=== PATIENT | female | born 1940 | race Caucasian/White ===

== ENCOUNTER 2018-12-08 19:35 | Inpatient (IN) ==
[2018-12-08 20:11] LABS: BASOPHILS # (AUTO) 0.03 10*3/UL; BASOPHILS % (AUTO) 0.3 % (0-1); EOSINOPHILS % (AUTO) 1.9 % (0-8); Hematocrit [HCT] 43.4 % (37.0-47.0); Hemoglobin [HGB] 13.6 g/dL (12.0-16.0); LYMPHOCYTES # (AUTO) 2.62 10*3/uL; MEAN CORPUSCULAR HGB CONC 31.3 g/dL (33-37); MEAN CORPUSCULAR VOLUME 99.1 FL (81-99); MEAN PLATELET VOLUME 10.5 FL (7.4-12.2); MONOCYTES # (AUTO) 0.89 10*3/UL (0.3-0.8); MONOCYTES % (AUTO) 8.3 % (5-15); NEUTROPHILS # (AUTO) 6.97 10*3/UL; NEUTROPHILS % (AUTO) 64.8 % (50-80); PLATELET MORPHOLOGY COMMENT NORMAL MORPHOLOGY (NORM); RBC MORPHOLOGY COMMENT NORMAL MORPHOLOGY (NORM); RED BLOOD COUNT 4.38 10^6/uL (4.20-5.40); WBC MORPHOLOGY COMMENT NORMAL MORPHOLOGY (NORM)
--- NOTE | 2018-12-08 20:15 | EKG ---
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
[2018-12-08 20:17] LABS: BUN/CREATININE RATIO 21.66 (6-20); SERUM ALBUMIN 4.1 g/dL (3.5-4.8)
[2018-12-08] MEDS: Sodium Chloride 0.9% 1,000 ML PRIMARY IV ONE ×2 (20:42→23:08)
[2018-12-08] MEDS ORDERED: LIDOCAINE HCL 2 % 10 ML JELLY URO-JECT TOPICAL PRN (20:49)
--- NOTE | 2018-12-08 20:53 | DI ---
INDICATION: Trauma COMPARISON: None FINDINGS: AP view of the pelvis and AP and lateral views of the left hip are obtained. There is an acute impacted, nondisplaced subcapital fracture of the right femoral neck. The sacral iliac joints, hip joints, and pubic symphysis are congruent. The bones are osteopenic. There are postoperative changes in the lower lumbar spine. IMPRESSION: 1. Acute impacted nondisplaced subcapital fracture of the right femoral neck.
[2018-12-08] MEDS ORDERED: ACETAMINOPHEN 325 MG TABLET PO PRN (22:14)
[2018-12-08] MEDS ORDERED: ONDANSETRON 4 MG/2 ML VIAL IVP PRN (22:14)
[2018-12-08] MEDS ORDERED: HYDROcodone-APAP 5 MG -325 MG TABLET PO PRN (22:14)
[2018-12-08] MEDS ORDERED: GLYCERIN RIGHT EYE PRN (22:14)
[2018-12-08] MEDS ORDERED: DOCUSATE 100 MG CAPSULE PO PRN (22:14)
[2018-12-08] MEDS ORDERED: MAGNESIUM 400 MG/5 ML - 30 ML (MILK OF MAGNESIA) PO PRN (22:14)
[2018-12-08] MEDS ORDERED: LIDOCAINE W/ SODIUM BICARB 0.5 ML SYR SUBD PRN (22:14)
[2018-12-08] MEDS ORDERED: Insulin NPH/Reg 70/30 Kwikpen 100 UNIT/ML INSULN.PEN SUBCUT SCH (22:14)
[2018-12-08] MEDS ORDERED: CARBOXYMETHYLCELLULOS RIGHT EYE PRN (22:14)
[2018-12-08] MEDS ORDERED: MORPHINE SULFATE 2 MG/1 ML IVP PRN (22:14)
[2018-12-08] MEDS ORDERED: CALCIUM CARBONATE 500 MG (TUMS) CHEWABLE TABLET PO PRN (22:14)
[2018-12-08] MEDS ORDERED: Sertraline Tab 100 MG TAB PO SCH (22:30)
[2018-12-08] MEDS ORDERED: HYDROcodone-APAP 5 MG -325 MG TABLET PO SCH (22:30)
[2018-12-08] MEDS ORDERED: HALOPERIDOL 1 MG TABLET PO SCH (22:30)
[2018-12-08] MEDS: HEPARIN 5000 UNIT/1 ML SUBCUT SCH (23:05)
[2018-12-08] MEDS: Sodium Chloride 0.9% 1,000 ML PRIMARY IV SCH (23:44)
[2018-12-09 04:48] LABS: BASOPHILS # (AUTO) 0.01 10*3/UL; BASOPHILS % (AUTO) 0.1 % (0-1); EOSINOPHILS # (AUTO) 0.13 10*3/UL; EOSINOPHILS % (AUTO) 1.2 % (0-8); Hematocrit [HCT] 37.2 % (37.0-47.0); Hemoglobin [HGB] 11.6 g/dL (12.0-16.0); LYMPHOCYTES # (AUTO) 1.47 10*3/uL; MEAN CORPUSCULAR HGB CONC 31.2 g/dL (33-37); MEAN CORPUSCULAR VOLUME 100.3 FL (81-99); MEAN PLATELET VOLUME 10.2 FL (7.4-12.2); MONOCYTES # (AUTO) 0.91 10*3/UL (0.3-0.8); MONOCYTES % (AUTO) 8.6 % (5-15); NEUTROPHILS # (AUTO) 8.03 10*3/UL; RED BLOOD COUNT 3.71 10^6/uL (4.20-5.40)
[2018-12-09 04:51] LABS: PLATELET MORPHOLOGY COMMENT NORMAL MORPHOLOGY (NORM); RBC MORPHOLOGY COMMENT NORMAL MORPHOLOGY (NORM); WBC MORPHOLOGY COMMENT NORMAL MORPHOLOGY (NORM)
[2018-12-09 05:03] LABS: BUN/CREATININE RATIO 18.18 (6-20); SERUM ALBUMIN 3.1 g/dL (3.5-4.8)
--- NOTE | 2018-12-09 05:33 | PDOC ---
Hip Injury/Pain HPI - General Chief Complaint: Lower Extremity Problem/Injury Stated Complaint: RIGHT PELVIC PAIN S/P FALL Date Seen by Provider: 12/08/18 Time Seen by Provider: 20:00 Source: POSITIVE: Patient, EMS, long term records Exam Limitations: POSITIVE: No limitations Nurse's Notes Reviewed & Considered: Yes EMS Report Reviewed & Considered: Verbal - History of Present Illness Initial Comments: The patient is a 78-year-old female who is transferred reported by ambulance from the [facility]. Patient was in [facility] area at the [facility] and she fell, injuring her right hip. Patient has a history of dementia. She also has a history of diabetes mellitus. She has normal facial right eye. Patient is a poor historian due to her dementia. Patient had no apparent head neck back chest abdominal or upper extremity trauma or discomfort. Have you received a tetanus shot in the past 10 years?: Unknown Location: Right Hip Timing: REPORTS: Abrupt Duration: 1/2 hour Severity: Moderate Location at Time of Onset: REPORTS: Other (long term) Context: REPORTS: Fall Concurrent Injuries: DENIES: Neck, Head, Back, Chest, Abdomen, Extremities, Face, Other Quality: REPORTS: "Pain" (Right hip) Modifying Factors: REPORTS: Movement Symptoms Prior to Fall: DENIES: Fever, Chills, Diaphoresis, Diaphoresis, Chest Pain, Weakness, Rapid Heart Rate, Nausea, Vomiting, Diarrhea, Dizziness, Light- Headedness, Headache, Seizure, Other Subsequent Symptoms: DENIES: Sensory Loss, Motor Loss, Numbness, Weakness, Bowel / Bladder Problems, Other Similar Symptoms Previously: No Recent Care Received: REPORTS: Denies Any Prior Injuries Related to Current Complaint?: No - Patient Home Medications Home Medications: Home Medications acetaminophen 500 mg tablet 500 - 1,000 mg PO Q6H PRN tab 12/03/18 acetaminophen 500 mg tablet 500 mg PO QDAY tab 12/03/18 aspirin 81 mg tablet,delayed release 81 mg PO QDAY 12/03/18 atorvastatin 10 mg tablet 10 mg PO .QOD tab 12/03/18 bisacodyl 10 mg rectal suppository 10 mg AK QDAY PRN 12/03/18 carboxymethylcellulose 0.5 %-glycerin 0.9 % eye drops 1 drp RIGHT EYE 10XD PRN ml 12/03/18 divalproex 125 mg capsule,delayed release sprinkle 125 mg PO TID cap 12/03/18 haloperidol 1 mg tablet 1 mg PO QAM tab 12/03/18 haloperidol 1 mg tablet 2 mg PO QHS tab 12/03/18 hydrocodone 5 mg-acetaminophen 325 mg tablet 1 tab PO BID tab 12/03/18 hydrocodone 5 mg-acetaminophen 325 mg tablet 1 tab PO Q8H PRN tab 12/03/18 hydrocodone 5 mg-acetaminophen 325 mg tablet 2 tab PO QHS tab 12/03/18 ibuprofen 200 mg tablet 200 mg PO BID tab 12/03/18 ibuprofen 200 mg tablet 400 mg PO Q4H PRN tab 12/03/18 insulin NPH-regular 70-30 U-100 insulin 100 unit/mL subcutaneous pen 10 unit SUBCUT QHS ml 12/03/18 insulin NPH-regular 70-30 U-100 insulin 100 unit/mL subcutaneous pen 26 unit SUBCUT QAM ml 12/03/18 magnesium hydroxide 400 mg/5 mL oral suspension 30 ml PO QDAY PRN ml 12/03/18 melatonin 3 mg tablet 3 mg PO QHS 12/03/18 memantine 10 mg tablet 10 mg PO BID 12/03/18 menthol 4 % topical gel 1 applic TOPICAL QHS ml 12/03/18 menthol 4 % topical gel 1 applic TOPICAL TID ml 12/03/18 ranitidine 150 mg tablet 150 mg PO QDAY 12/03/18 sertraline 100 mg tablet 100 mg PO QHS tab 12/03/18 - Patient Allergies Allergies/Adverse Reactions: Allergies Allergy/AdvReac Type Severity Reaction Status Date / Time meperidine [From Demerol] AdvReac Other : Verified 12/08/18 22:50 See Comment morphine AdvReac Other : Verified 12/08/18 22:49 See Comment Past Medical History - heen HEENT History: Other (please comment) Additional HEENT History: ARTIFICIAL RIGHT EYE Cardiovascular History: Angina, Hyperlipidemia Respiratory History: Denies History Gastrointestinal History: GERD Genitourinary History: Renal Disease Endocrine History: Type 2 Diabetes (insulin) Musculoskeletal History: Arthritis, Back Pain Neurological History: TIA, Dementia, Multiple Sclerosis Blood Disorders: Denies History Psychiatric History: Denies History History of Sexually Transmitted Diseases: No Female Reproductive History: Denies History Obstetrical History: Denies History Cancer History: Denies History In Past Year Been Physically Harmed or Verbally Threatened: No History of MDRO: No History of Other Communicable Diseases: No Tobacco Use: Never Smoker In the Past 12 Months, Have Used or Abuse Any Substance: None Previous Surgical History: Yes Type / Date of Surgery: LEFT TKA, ARTIFICIAL RIGHT EYE, lower back surgery Anesthesia Reactions: (TOMMY FROM PT HISTORY OR [facility] RECORDS) Malignant Hyperthermia: (TOMMY FROM PT HISTORY OR [facility] RECORDS) Family History of Malignant Hyperthermia: (TOMMY FROM PT HISTORY OR [facility] RECORDS) Significant Family History: Other (please comment) Additional Family History: TOMMY FROM PT HISTORY OR [facility] RECORDS Past Medical History Reviewed: Reviewed - No Changes ROS - Limitations ROS Limitations: No Limitations Constitution: REPORTS: Denies Symptoms Cardiovascular: REPORTS: Denies Cardiac Symptoms Respiratory: REPORTS: Denies Resp Symptoms Neurological: REPORTS: Denies Neuro Symptoms Gastrointestinal: REPORTS: Denies GI Symptoms Endocrine: REPORTS: Denies Symptoms Musculoskeletal: REPORTS: Joint Pain (Right hip) Genitourinary: REPORTS: Denies Symptoms Eyes: REPORTS: Denies Symptoms ENT: REPORTS: Denies Symptoms Skin: REPORTS: Denies Skin Symptoms Lympathic: REPORTS: Denies Lympathic Symptoms Immunologic: POSITIVE: Denies Symptoms Psychiatric: POSITIVE: Denies Psych Symptoms Hip Injury / Pain Exam - General Appearance General Appearance: POSITIVE: Alert, Cooperative, Mild Distress. NEGATIVE: No Acute Distress, No Evidence of Trauma (Pain on help patient anterior and lateral aspect right hip) - Lower Extremity Extremities: POSITIVE: No Pedal Edema, No Obvious Injury to Knee, No Deformity to Knee, Normal Tendon Exam, Hip Pain on Leg Movement. NEGATIVE: Non-Tender (P ain on palpation anterior and anterolateral aspect right hip), Normal ROM (Limited by pain), Shortening of Leg, External Rotation of Leg, Hip/Knee Tenderness, Pedal Edema, Ecchymosis, Erythema, Soft Tissue Injury - HEENT HEENT: POSITIVE: Head Inspection Nml, Ears Inspection Nml, Nose Inspection Nml, Oral/Dental Inspect. Nml, Pharynx Inspect. Nml. NEGATIVE: Eyes Inspection Nml (Artificial right eye) - Pupil Size Pupil Size: 4 mm: Left - Neck/Back Neck: POSITIVE: Normal Inspection, Non-Tender Back: POSITIVE: Normal Inspection, No CVA Tenderness, Non Tender, Painless ROM, No Vertebral Tenderness - Respiratory / CVS Cardiovascular: POSITIVE: Regular Rate and Rhythm, Heart Sounds Normal, Equal Pulses, Strong Pulses, No Murmur, No Gallop, No JVD, No Pulse Deficit Respiratory: POSITIVE: Chest Non Tender, No Ecchymosis, Breath Sounds Normal, No Respiratory Distress Peripheral Pulses: Radial (R): 2+, Radial (L): 2+, Dorsalis-pedis (R): 2+, Dorsalis-pedis (L): 2+ - Abdomen Abdomen: Soft: (All Quadrants), Normal Bowel Sounds: (All Quadrants), Denies Tenderness: (All Quadrants), No Splenomegaly: (All Quadrants), No Hepatomegaly: (All Quadrants), No Guarding: (All Quadrants), No Rebound: (All Quadrants), No Palpable Pulse: (All Quadrants), No Palpabale Mass: (All Quadrants), No Distention: (All Quadrants), No Rigidity: (All Quadrants) - Skin Skin: POSITIVE: Color Normal, No Rash, Warm, Dry, Normal Palpation - Neuro/Psych Neuro / Psych: NEGATIVE: Oriented x 3 (Patient has chronic dementia. She is not oriented to time, president or situation chronically.) Images - Complete Complete: 1 - Area of pain Hip Injury / Pain Progress - Results Reviewed by me Xrays/CTs/US Reviewed by me: Yes Discussed with Radiologist: Yes Radiology Findings: Subcapital right femoral neck fracture Lab Results Reviewed by Me: Yes CBC and BMP: 12/09/18 04:10 12/09/18 04:10 Lab Results:: Laboratory Results 12/08/18 12/08/18 12/08/18 19:45 19:45 20:15 WBC 10.74 RBC 4.38 Hgb 13.6 Hct 43.4 MCV 99.1 H MCH 31.1 H MCHC 31.3 L RDW Std Deviation 44.8 RDW Coeff of Darleen 12.6 Plt Count 232 MPV 10.5 Immature Gran % (Auto) 0.3 Neut % (Auto) 64.8 Lymph % (Auto) 24.4 [place] % (Auto) 8.3 Eos % (Auto) 1.9 Baso % (Auto) 0.3 Immature Gran # (Auto) 0.03 Neut # (Auto) 6.97 Lymph # (Auto) 2.62 [place] # (Auto) 0.89 H Eos # (Auto) 0.20 Baso # (Auto) 0.03 WBC Morphology Comment Normal morphology Plt Morphology Comment Normal morphology RBC Morph Comment Normal morphology PT 11.9 INR 1.03 Sodium 143 Potassium 4.0 Chloride 102 Carbon Dioxide 31 Anion Gap 10 BUN 26 H Creatinine 1.2 Estimated GFR BUN/Creatinine Ratio 21.66 H Glucose 130 H Calculated Osmolality 302.0 H Calcium 9.4 Total Bilirubin 0.4 AST 42 H ALT 22 Alkaline Phosphatase 78 Total Protein 7.2 Albumin 4.1 Globulin 3.2 Albumin/Globulin Ratio 1.20 L EKG Interpreted/Reviewed By Me:: Yes (normal) EKG Interpretation:: POSITIVE: Normal Sinus Rhythm, Normal Rate, Normal Intervals, Normal Man, Normal QRS, Normal ST/T - Patient's Progress Pain Medication Addressed: POSITIVE: Not Applicable (Patient comfortable provided she does not move her right hip; Guidry catheter passed) Re-Examine Time: 20:00 Re-Examine Comment: Patient advised that she has a right hip fracture. Case discussed with the orthopedist on-call, Dr. Lugo and hospitalist crushed stone grader, Dr. Lezama. Patient admitted to hospitalist for further evaluation and treatment. Status: POSITIVE: Unchanged, Re-Examined - Consult Consult (If Yes, Name of Consulting MD & Time Called): Yes (Dr. Flores, orthopedist and Dr. Lezama, hospitalist, [id number]) Consulting MD will see pt:: POSITIVE: [facility] Admit Counseled: POSITIVE: Patient, RE: Lab Results, RE: Radiology Results, RE: DX, RE: Need for F/U Patient Care Time - Estimated PCT Patient Care Time (In Minutes): 45 Vital Signs - VS Reviewed Vital Signs Reviewed: Yes Discharge Clinical Impression: Hip fracture Discharge Disposition: Admit to Inpatient Condition: Stable Patient Problem(s) Reviewed: Yes Date Decision to Admit to Inpatient: 12/09/18 Time Decision to Admit to Inpatient: 21:10
[2018-12-09] MEDS: HEPARIN 5000 UNIT/1 ML SUBCUT SCH ×2 (08:23→16:16)
[2018-12-09] MEDS: HYDROcodone-APAP 5 MG -325 MG TABLET PO SCH ×2 (08:24→12:55)
[2018-12-09] MEDS ORDERED: FAMOTIDINE 20 MG TABLET PO SCH (09:00)
[2018-12-09] MEDS ORDERED: HALOPERIDOL 1 MG TABLET PO SCH (09:00)
[2018-12-09] MEDS ORDERED: MEMANTINE 10 MG TABLET PO SCH (09:00)
--- NOTE | 2018-12-09 09:32 | PDOC ---
HPI - History of Present Illness History of Present Illness: This very nice 78-year-old female resident of the [facility] before that she was at [place]. When in [place] she sustained a fall trying to get away from the [facility]. This time she fell on the dining area and x-ray showed also A fracture of her right hip. She also has a history of dementia and diabetes. She is not in pain this morning he has no complaints had a long discussion with the family members and daughters. She is allergic to morphine which we will not give her and give her IV fentanyl for breakthrough pain. Past Medical History Medical History: Diabetes, dementia, hypertension chronic arthritis Tobacco Use: Never Smoker In the Past 12 Months, Have Used or Abuse Any of the Following Substance: None Medication / Allergies Home Medications: Home Medications Medication Instructions Recorded Confirmed acetaminophen 500 mg tablet 500 - 1,000 mg PO Q6H PRN tab 12/03/18 12/08/18 acetaminophen 500 mg tablet 500 mg PO QDAY tab 12/03/18 12/08/18 aspirin 81 mg tablet,delayed 81 mg PO QDAY 12/03/18 12/08/18 release atorvastatin 10 mg tablet 10 mg PO .QOD tab 12/03/18 12/08/18 bisacodyl 10 mg rectal suppository 10 mg AR QDAY PRN 12/03/18 12/08/18 carboxymethylcellulose 0.5 1 drp RIGHT EYE 10XD PRN ml 12/03/18 12/08/18 %-glycerin 0.9 % eye drops divalproex 125 mg capsule,delayed 125 mg PO TID cap 12/03/18 12/08/18 release sprinkle haloperidol 1 mg tablet 1 mg PO QAM tab 12/03/18 12/08/18 haloperidol 1 mg tablet 2 mg PO QHS tab 12/03/18 12/08/18 hydrocodone 5 mg-acetaminophen 325 1 tab PO BID tab 12/03/18 12/08/18 mg tablet hydrocodone 5 mg-acetaminophen 325 1 tab PO Q8H PRN tab 12/03/18 12/08/18 mg tablet hydrocodone 5 mg-acetaminophen 325 2 tab PO QHS tab 12/03/18 12/08/18 mg tablet ibuprofen 200 mg tablet 200 mg PO BID tab 12/03/18 12/08/18 ibuprofen 200 mg tablet 400 mg PO Q4H PRN tab 12/03/18 12/08/18 insulin NPH-regular 70-30 U-100 10 unit SUBCUT QHS ml 12/03/18 12/08/18 insulin 100 unit/mL subcutaneous pen insulin NPH-regular 70-30 U-100 26 unit SUBCUT QAM ml 12/03/18 12/08/18 insulin 100 unit/mL subcutaneous pen magnesium hydroxide 400 mg/5 mL 30 ml PO QDAY PRN ml 12/03/18 12/08/18 oral suspension melatonin 3 mg tablet 3 mg PO QHS 12/03/18 12/08/18 memantine 10 mg tablet 10 mg PO BID 12/03/18 12/08/18 menthol 4 % topical gel 1 applic TOPICAL QHS ml 12/03/18 12/08/18 menthol 4 % topical gel 1 applic TOPICAL TID ml 12/03/18 12/08/18 ranitidine 150 mg tablet 150 mg PO QDAY 12/03/18 12/08/18 sertraline 100 mg tablet 100 mg PO QHS tab 12/03/18 12/08/18 Allergies/Adverse Reactions: Allergies Allergy/AdvReac Type Severity Reaction Status Date / Time meperidine [From Demerol] AdvReac Other : Verified 12/09/18 10:33 See Comment morphine AdvReac Other : Verified 12/09/18 10:33 See Comment Review of Systems - Review of Systems All Systems: Reviewed & No Additional Complaints Except as Stated ROS Unobtainable: Other (Secondary to dementia) - Respiratory Respiratory: DENIES: Negative System Review, Cough, Sputum, Dyspnea At Rest, Dyspnea with Exertion, Pleuritic Pain, Hemoptysis, Wheezing, Other, See HPI - Cardiovascular Cardiovascular: DENIES: Negative System Review, Chest Pain, Edema, Syncope, Palpitations, Orthopnea, Paroxysmal Nocturnal Dyspnea, Other, See HPI Exam - Vitals Vital Signs: Vital Signs Temperature 97.8 F Temperature Source Temporal Artery Scan Pulse Rate [Pulse Oximeter] 67 Pulse Rate 65 Respiratory Rate 20 Blood Pressure [Left Arm] 124/50 Blood Pressure 135/58 Pulse Ox 96 Oxygen Flow Rate 2 Oxygen Delivery Method Nasal Cannula Height 5 ft 2 in Weight 176 lb 3.2 oz - General General Appearance: No Acute Distress - Respiratory Respiratory Exam: POSITIVE: Clear to Auscultation - Bilaterally, Breathing Non Labored, Normal To Percussion, Normal to Percussion and Palpation - Cardiovascular Cardiovascular Exam: POSITIVE: RRR, No Murmur, No Clicks, No Gallops, No Rubs, PMI Non-Displaced - GI/Abdominal GI/Abdominal Exam: POSITIVE: Normal Bowel Sounds, Non Tender, Non Distended, Soft, No Masses, No Hepatomegaly, No Splenomegaly, No Organomegaly Results - Labs CBC and BMP: 12/09/18 04:10 12/09/18 04:10 Assessment and Plan - Patient Problems (1) Hip fracture Current Visit: Yes Status: Acute Comment: Spoke with Dr. Lugo he will evaluate the patient, up with a plan CT over the right hip is pending pain is controlled with IV fentanyl patient is allergic to morphine Code(s): S72.009A - Fracture of unspecified part of neck of unspecified femur, initial encounter for closed fracture (2) Diabetes Current Visit: Yes Status: Acute Comment: We will do have to dose of what she usually takes Code(s): E11.9 - Type 2 diabetes mellitus without complications (3) Dementia Current Visit: Yes Status: Acute Comment: Continue current by mouth pills Code(s): F03.90 - Unspecified dementia without behavioral disturbance
[2018-12-09] MEDS: DIVALPROEX SODIUM 125 MG PO SCH ×2 (10:32→16:16)
[2018-12-09] MEDS: fentaNYL Inj 100 MCG/2 ML VIAL IVP PRN ×3 (10:52→15:28)
[2018-12-09] MEDS: Sodium Chloride 0.9% 1,000 ML PRIMARY IV SCH (10:53)
--- NOTE | 2018-12-09 11:08 | DI ---
CT SCAN OF THE RIGHT HIP, 12/09/2018 10:26 AM : Clinical History: Right hip fracture. Right hip pain. Previous Exam: None at this facility. Technique: Scans are obtained from just superior to the right SI joint to the proximal right femur wi thout IV contrast. Sagittal and coronal reformatted images are also generated. Soft Tissues: Normal. There is a moderate-sized right hip effusion, probably representing a hemarthro sis. Bone Tissue: Intact acetabulum. Impacted subcapital right hip fracture. No lytic or blastic metastati c lesions identified. There is osteoporosis. READIN. Right subcapital impacted hip fracture. Intact acetabulum. 2. Severe osteoporosis.
--- NOTE | 2018-12-09 12:22 | CONSULT ---
Consult Note - Consult Consult Date: 12/09/18 Reason for Consult: PreOp Consulation : Ortho Requesting Physician: Dr Campos Primary Care Provider: NONE NONE - History of Present Illness History of Present Illness: Patient is a 78-year-old female who is been in her usual state of health with some degree of dementia and medical problems that have been relatively stable who sustained a fall while at dinner tonight at [facility]. According to family patient has had multiple random falls recently. Patient poor historian because of dementia. Patient would no previous complaints of hip pain. Patient seen in the emergency room and found to have a hip fracture and a consultation was requested. Past Medical History Medical History: Diabetes, dementia, hypertension chronic arthritis Tobacco Use: Never Smoker In the Past 12 Months, Have Used or Abuse Any of the Following Substance: None Medication / Allergies Home Medications: Home Medications Medication Instructions Recorded Confirmed acetaminophen 500 mg tablet 500 - 1,000 mg PO Q6H PRN tab 12/03/18 12/08/18 acetaminophen 500 mg tablet 500 mg PO QDAY tab 12/03/18 12/08/18 aspirin 81 mg tablet,delayed 81 mg PO QDAY 12/03/18 12/08/18 release atorvastatin 10 mg tablet 10 mg PO .QOD tab 12/03/18 12/08/18 bisacodyl 10 mg rectal suppository 10 mg NE QDAY PRN 12/03/18 12/08/18 carboxymethylcellulose 0.5 1 drp RIGHT EYE 10XD PRN ml 12/03/18 12/08/18 %-glycerin 0.9 % eye drops divalproex 125 mg capsule,delayed 125 mg PO TID cap 12/03/18 12/08/18 release sprinkle haloperidol 1 mg tablet 1 mg PO QAM tab 12/03/18 12/08/18 haloperidol 1 mg tablet 2 mg PO QHS tab 12/03/18 12/08/18 hydrocodone 5 mg-acetaminophen 325 1 tab PO BID tab 12/03/18 12/08/18 mg tablet hydrocodone 5 mg-acetaminophen 325 1 tab PO Q8H PRN tab 12/03/18 12/08/18 mg tablet hydrocodone 5 mg-acetaminophen 325 2 tab PO QHS tab 12/03/18 12/08/18 mg tablet ibuprofen 200 mg tablet 200 mg PO BID tab 12/03/18 12/08/18 ibuprofen 200 mg tablet 400 mg PO Q4H PRN tab 12/03/18 12/08/18 insulin NPH-regular 70-30 U-100 10 unit SUBCUT QHS ml 12/03/18 12/08/18 insulin 100 unit/mL subcutaneous pen insulin NPH-regular 70-30 U-100 26 unit SUBCUT QAM ml 12/03/18 12/08/18 insulin 100 unit/mL subcutaneous pen magnesium hydroxide 400 mg/5 mL 30 ml PO QDAY PRN ml 12/03/18 12/08/18 oral suspension melatonin 3 mg tablet 3 mg PO QHS 12/03/18 12/08/18 memantine 10 mg tablet 10 mg PO BID 12/03/18 12/08/18 menthol 4 % topical gel 1 applic TOPICAL QHS ml 12/03/18 12/08/18 menthol 4 % topical gel 1 applic TOPICAL TID ml 12/03/18 12/08/18 ranitidine 150 mg tablet 150 mg PO QDAY 12/03/18 12/08/18 sertraline 100 mg tablet 100 mg PO QHS tab 12/03/18 12/08/18 Allergies/Adverse Reactions: Allergies Allergy/AdvReac Type Severity Reaction Status Date / Time meperidine [From Demerol] AdvReac Other : Verified 12/09/18 10:33 See Comment morphine AdvReac Other : Verified 12/09/18 10:33 See Comment Exam - - Exam: Vital Signs (Last 8 hours) Temp Pulse Resp BP Pulse Ox 12/09/18 08:29 97.8 F 67 20 124/50 96 12/09/18 07:00 67 12/09/18 04:54 96.9 F 65 14 117/85 98 Laboratory Results 12/08/18 12/08/18 12/08/18 19:45 19:45 20:15 WBC 10.74 RBC 4.38 Hgb 13.6 Hct 43.4 MCV 99.1 H MCH 31.1 H MCHC 31.3 L RDW Std Deviation 44.8 RDW Coeff of Darleen 12.6 Plt Count 232 MPV 10.5 Immature Gran % (Auto) 0.3 Neut % (Auto) 64.8 Lymph % (Auto) 24.4 Parmer % (Auto) 8.3 Eos % (Auto) 1.9 Baso % (Auto) 0.3 Immature Gran # (Auto) 0.03 Neut # (Auto) 6.97 Lymph # (Auto) 2.62 Parmer # (Auto) 0.89 H Eos # (Auto) 0.20 Baso # (Auto) 0.03 WBC Morphology Comment Normal morphology Plt Morphology Comment Normal morphology RBC Morph Comment Normal morphology PT 11.9 INR 1.03 Sodium 143 Potassium 4.0 Chloride 102 Carbon Dioxide 31 Anion Gap 10 BUN 26 H Creatinine 1.2 Estimated GFR BUN/Creatinine Ratio 21.66 H Glucose 130 H Calculated Osmolality 302.0 H Calcium 9.4 Total Bilirubin 0.4 AST 42 H ALT 22 Alkaline Phosphatase 78 Troponin I Total Protein 7.2 Albumin 4.1 Globulin 3.2 Albumin/Globulin Ratio 1.20 L 12/08/18 12/09/18 12/09/18 22:14 04:10 04:10 WBC 10.57 RBC 3.71 L Hgb 11.6 L Hct 37.2 MCV 100.3 H MCH 31.3 H MCHC 31.2 L RDW Std Deviation 44.5 RDW Coeff of Darleen 12.4 Plt Count 181 MPV 10.2 Immature Gran % (Auto) 0.2 Neut % (Auto) 76.0 Lymph % (Auto) 13.9 Parmer % (Auto) 8.6 Eos % (Auto) 1.2 Baso % (Auto) 0.1 Immature Gran # (Auto) 0.02 Neut # (Auto) 8.03 Lymph # (Auto) 1.47 Parmer # (Auto) 0.91 H Eos # (Auto) 0.13 Baso # (Auto) 0.01 WBC Morphology Comment Normal morphology Plt Morphology Comment Normal morphology RBC Morph Comment Normal morphology PT INR Sodium 144 Potassium 4.6 Chloride 108 Carbon Dioxide 32 Anion Gap 4 L BUN 20 Creatinine 1.1 Estimated GFR BUN/Creatinine Ratio 18.18 Glucose 130 H Calculated Osmolality 302.0 H Calcium 8.5 L Total Bilirubin 0.3 AST 30 ALT 17 Alkaline Phosphatase 65 Troponin I < 0.012 Total Protein 5.6 L Albumin 3.1 L Globulin 2.5 Albumin/Globulin Ratio 1.20 L Examination shows that the patient is a well-developed well-nourished female in no apparent distress she is very comfortable on pain medication very limited ability to participate with the examination. Hip with external rotation with no significant shortening good pulses brisk refill skin is healthy otherwise no areas of breakdown. In gentle movement of left leg causes pain movement of right leg does not seem to cause any significant pain or discomfort nor with a squeezing of the pelvis. Upper extremity seem to be fine with no limitations pain discomfort swelling erythema. It seems like neck motion is a reasonable with no evidence of pain or discomfort. Radiographs of the pelvis and right hip show that the patient has some hardware in the lower lumbar spine region she has an impacted femoral neck fracture on the pelvis and AP view of the right hip but on the lateral it looks like there may be some booking open of the fracture site and some translation. Radiographs with 3-D were obtained because of the radiographic issues and for preoperative planning. There is some slight translation comminution posteriorly and booking open anteriorly of the fracture the hip joint looks reasonable otherwise some early arthritic changes. - Vitals Vital Signs: Vital Signs Temperature 97.8 F Temperature Source Temporal Artery Scan Pulse Rate [Pulse Oximeter] 67 Pulse Rate 65 Respiratory Rate 20 Blood Pressure [Left Arm] 124/50 Blood Pressure 135/58 Pulse Ox 96 Oxygen Flow Rate 2 Oxygen Delivery Method Nasal Cannula Height 5 ft 2 in Weight 79.923 kg Results - Labs CBC and BMP: 12/09/18 04:10 12/09/18 04:10 Assessment and Plan - Assessment / Plan Additional Assessment/Plan Details: Impression: Right femoral neck fracture impacted with slight translation. Dementia multiple other medical issues Plan: We discussed the patient's current condition and clinical findings as it pertains to the current situation. Surgical versus nonsurgical options risks and benefits were discussed and reviewed. Options moving forward include but are not limited to continued choice to live with their current condition; evaluate their current condition further with imaging studies and/or diagnostic testing, etc.; treat problem/problems with surgical versus nonsurgical methods. The patient demonstrates a clear understanding of our discussion. All questions were answered. Surgical versus nonsurgical options risks and benefits were discussed and reviewed. The risks include but are not limited to bleeding, infection, neurovascular damage, wound problems, deep vein thromboses, pulmonary embolism, fracture, dislocation, nonunion/malunion, need for further surgery, need for blood transfusion, and loss of life and limb. Certainly any surgical procedure may not improve symptoms and potentially could makes symptoms worse. There are no guarantees implied with the discussion of surgical treatment. All questions are answered and the patient wishes to proceed with surgical treatment. Initially family discussion with the hospitalist was before another physician to care for their mother. A family member had issues with myself as her provider and surgeon. After discussion with the family and offering transfer to another facility or to have their loved one cared by another orthopedist who comes to this hospital they declined these offers. In my discussions with the family in the presence of her nurse for today they have been informed of risks benefits issues and different options available for treatment. They would like to proceed with a hemiarthroplasty of the right hip because of her frequent falls her inability to follow direction because of her dementia and her limited ability to likely be able to withstand limitations. We mainly discussed nonoper ative care which was unlikely a good option, percutaneous pinning after gentle closed reduction, and hemiarthroplasty. Model were used to explain and demonstrate the various treatment and all questions were answered. Family realize choice of hemiarthroplasty certainly places more stress on her body with a higher risk of morbidity and mortality. They wish to proceed along these lines and we will get things moving in that direction. - Time/Visit Time Spent With Patient: Greater Than 35 Mintues
--- NOTE | 2018-12-09 13:28 | DI ---
AP VIEW OF THE LEFT HIP, 12/09/2018 1:00 PM: Clinical History: Fracture of the right hip. AP of the left hip for template measurement for the righ t hip. Previous Exam: None at this facility. An AP view with a marker is submitted There is no acute soft tissue, osseous, or joint abnormality. Reading: Negative left hip exam. This view is obtained for prosthetic measurement of the right hip
[2018-12-09] MEDS ORDERED: Nasal Sanitizer POPSWAB ampule 1 AMP (Nozin) ENOS SCH (13:45)
[2018-12-09] MEDS ORDERED: Lactated Ringers 1,000 ML PRIMARY IV ONE (15:24)
[2018-12-09] MEDS ORDERED: Lactated Ringers 1,000 ML PRIMARY IV SCH ×3 (15:30→21:27)
[2018-12-09 15:50] LABS: BILIRUBIN,URINE NEGATIVE (NEG); CLARITY,URINE CLEAR (CLEAR); COLOR,URINE YELLOW (Y); GLUCOSE, URINE (UA) NEGATIVE (NEG); OCCULT BLOOD,URINE NEGATIVE (NEG); PROTEIN,URINE NEGATIVE (NEG); UROBILINOGEN,URINE 0.2 EU/dL (0.2)
[2018-12-09 15:55] LABS: BACTERIA,URINE MODERATE; RBC,URINE 0-1 /hpf; SQUAMOUS EPITHELIAL CELL,UR RARE; URINE SAMPLE TYPE CLEAN CATCH URINE
[2018-12-09] MEDS ORDERED: Gentamicin Inj 40 MG/ML VIAL ONE (16:15)
[2018-12-09] MEDS ORDERED: HEPARIN 10,000 UNIT/1 ML ONE (16:15)
[2018-12-09] MEDS ORDERED: BACITRACIN 50,000 UNIT VIAL IRRIG ONE (16:17)
[2018-12-09] MEDS ORDERED: LIDOCAINE W/ SODIUM BICARB 0.5 ML SYR ONE (16:21)
[2018-12-09] MEDS ORDERED: Sodium Chloride 0.9% vial 20 ML ONE ×2 (16:25→18:15)
[2018-12-09] MEDS ORDERED: BUPivacaine Liposome/PF (Exparel) Inj 20ml vial INFIL ONE (16:26)
[2018-12-09] MEDS ORDERED: Sodium Chloride 0.9% 500 ML ONE (16:32)
[2018-12-09] MEDS ORDERED: Sodium Chloride 0.9% 2,000 ML PRIMARY IV ONE (16:32)
[2018-12-09] MEDS ORDERED: PROPOFOL 10 MG/1 ML (200 MG/20 ML) VIAL IV ONE (16:48)
[2018-12-09] MEDS ORDERED: fentaNYL Inj 250 MCG/5 ML VIAL ONE (16:49)
[2018-12-09] MEDS ORDERED: Cefepime Inj 2 GM in Sodium Chloride 0.9% 100 ML IV SCH (17:00)
[2018-12-09] MEDS ORDERED: ceFAZolin Inj 2gm (Premix) 2 GM/50 ML BAG IV ONE ×2 (17:06→18:30)
[2018-12-09] MEDS ORDERED: Ketorolac Inj 30 MG, BUPivacaine Inj 0.25% PF 150 MG SPLASH ONE ×2 (17:30)
[2018-12-09] MEDS ORDERED: ePHEDrine Inj 50 MG/ML AMP ONE ×2 (17:53→18:04)
[2018-12-09] MEDS ORDERED: KETAMINE 100 MG/1 ML - 5 ML ONE (18:21)
[2018-12-09] MEDS ORDERED: TRANEXAMIC ACID 1,000 MG / 10 ML VIAL ONE ×2 (18:44→18:58)
[2018-12-09] MEDS ORDERED: Sodium Chloride 0.9% 250 ML ONE (18:45)
[2018-12-09] MEDS ORDERED: HYDROmorphone 2 MG/1 ML ONE (19:06)
[2018-12-09] MEDS ORDERED: ONDANSETRON 4 MG/2 ML VIAL ONE (19:22)
--- NOTE | 2018-12-09 20:01 | ORTHO.OP ---
- - -: See Dictated Operative Report Procedure Codes - Hip Procedures Primary Hip Procedure: Other CPT Code(s) (CPT code 42348, Dinora FONTANA assisted)
[2018-12-09] MEDS ORDERED: LIDOCAINE W/ SODIUM BICARB 0.5 ML SYR SUBD PRN (20:35)
[2018-12-09] MEDS ORDERED: fentaNYL Inj 100 MCG/2 ML VIAL IVP PRN (20:35)
--- NOTE | 2018-12-09 20:37 | CRNA.PROGR ---
Anesthesia Time - Procedure/Recovery Time Start Date: 12/09/18 End Date: 12/09/18 Anesthesia : Time In: 17:30 Anesthesia : Time Out: 20:22 Anesthesia : Total Time: 172 - Total Anesthesia Time Total Anesthesia Time (minutes): 172 - Other Weight: 79.923 kg Height: 5 ft 2 in Body Mass Index (BMI): 32.2 Physical Status: P3 Anesthesia Type: General Anesthesia : LMA
--- NOTE | 2018-12-09 20:37 | CRNA.PROGR ---
Anesthesia Recovery Phase I - Post Anesthesia Evaluation Patient's Condition on Arrival in Phase I: Stable Pain Level: 0
--- NOTE | 2018-12-09 20:59 | DI ---
EXAM: XR Right Hip With Pelvis When Performed, 2 or 3 Views CLINICAL HISTORY: Its. reason right hemiarthroplasty femoral neck fracture Physician Notes: Tech Comments: TECHNIQUE: Two or three views of the right hip, with pelvis when performed. COMPARISON: Hip radiographs performed yesterday FINDINGS: Bones/joints: Stable postsurgical changes from right total hip arthroplasty. Hardware is intact. There is a drain in the right hip. Mauldin in the skin of the right hip. Posterior decompression and fusion changes in the lumbosacral spine. Sutures in the pelvis. Guidry catheter. Small foci of gas in the right hip. No dislocation. Soft tissues: Unremarkable. IMPRESSION: Stable postsurgical changes from right total hip arthroplasty.
[2018-12-09] MEDS ORDERED: ATORVASTATIN 10 MG TABLET PO SCH (21:00)
[2018-12-09] MEDS ORDERED: HYDROcodone-APAP 5 MG -325 MG TABLET PO SCH (21:00)
[2018-12-09] MEDS ORDERED: ONDANSETRON 4 MG/2 ML VIAL IVP PRN (21:27)
[2018-12-09] MEDS: DOCUSATE 100 MG CAPSULE PO SCH (22:25)
[2018-12-10] MEDS: ceFAZolin Inj 2gm (Premix) 2 GM/50 ML BAG IV SCH ×2 (01:58→10:10)
[2018-12-10 04:25] LABS: BASOPHILS # (AUTO) 0.01 10*3/UL; BASOPHILS % (AUTO) 0.1 % (0-1); EOSINOPHILS # (AUTO) 0.22 10*3/UL; EOSINOPHILS % (AUTO) 1.9 % (0-8); Hematocrit [HCT] 34.8 % (37.0-47.0); Hemoglobin [HGB] 10.9 g/dL (12.0-16.0); LYMPHOCYTES # (AUTO) 1.28 10*3/uL; MEAN CORPUSCULAR HGB CONC 31.3 g/dL (33-37); MEAN CORPUSCULAR VOLUME 101.2 FL (81-99); MEAN PLATELET VOLUME 9.9 FL (7.4-12.2); MONOCYTES # (AUTO) 0.76 10*3/UL (0.3-0.8); MONOCYTES % (AUTO) 6.4 % (5-15); NEUTROPHILS # (AUTO) 9.57 10*3/UL; NEUTROPHILS % (AUTO) 80.6 % (50-80); RED BLOOD COUNT 3.44 10^6/uL (4.20-5.40)
[2018-12-10 04:34] LABS: PLATELET MORPHOLOGY COMMENT NORMAL MORPHOLOGY (NORM); RBC MORPHOLOGY COMMENT NORMAL MORPHOLOGY (NORM); WBC MORPHOLOGY COMMENT NORMAL MORPHOLOGY (NORM)
[2018-12-10 04:54] LABS: BLOOD UREA NITROGEN 21 mg/dL (7-22)
[2018-12-10] MEDS ORDERED: FUROSEMIDE 10 MG/1 ML - 4 ML IVP ONE (05:52)
--- NOTE | 2018-12-10 05:57 | PDOC(PROG) ---
Interval History: Doing well. No complaints no chest pain nausea or vomiting she has no pain Objective : Data - Labs CBC and BMP: 12/10/18 04:10 12/10/18 04:10 Objective : Exam - General General Appearance: No Acute Distress, Cooperative - Respiratory Respiratory Exam: Clear to Auscultation - Bilaterally, Breathing Non Labored, Normal To Percussion, Normal to Percussion and Palpation - Cardiovascular Cardiovascular Exam: RRR, No Murmur, No Clicks, No Gallops, No Rubs, PMI Non- Displaced - GI/Abdominal GI/Abdominal Exam: Normal Bowel Sounds, Non Tender, Non Distended, Soft, No Masses, No Hepatomegaly, No Splenomegaly, No Organomegaly - Extremities Extremities Exam: No Clubbing Present, No Edema Present, No Cyanosis Present Additional Extremities Exam Details: Drain in place Assessment and Plan - Patient Problems (1) Hip fracture Current Visit: Yes Status: Acute Code(s): S72.009A - Fracture of unspecified part of neck of unspecified femur, initial encounter for closed fracture (2) Diabetes Current Visit: Yes Status: Acute Code(s): E11.9 - Type 2 diabetes mellitus without complications (3) Dementia Current Visit: Yes Status: Acute Code(s): F03.90 - Unspecified dementia without behavioral disturbance - Assessment / Plan Additional Assessment/Plan Details: #1 status post fracture repairdoing well continue PTOT /anticoagulation to Dr. Lugo #2 diabetes Humalog moderate intensity sliding scale check sugars before meals and at bedtime #3 IV fluids we'll change to normal saline at 75 an hour oxygen his dose of potassium and normal saline compared to lactated Ringer's patient's potassium slightly higher than yesterday we'll also give 1 dose of IV Lasix. #4 urinary tract infections on admission continue cefepime 2 g IV every 12 in of hip surgery and hardware placement and patient being diabetic #5 severe dementia on Haldol daily patient is allergic to morphine continue fentanyl for pain continue Zoloft as well
[2018-12-10] MEDS: Cefepime Inj 2 GM in Sodium Chloride 0.9% 100 ML IV SCH ×2 (06:31→17:49)
[2018-12-10] MEDS: Sodium Chloride 0.9% 1,000 ML PRIMARY IV SCH ×3 (06:31→20:18)
[2018-12-10] MEDS: fentaNYL Inj 100 MCG/2 ML VIAL IVP PRN ×5 (07:29→15:52)
[2018-12-10] MEDS: DOCUSATE 100 MG CAPSULE PO SCH ×2 (08:28→20:11)
[2018-12-10] MEDS: ASPIRIN EC 81 MG TABLET PO SCH ×2 (08:28→20:11)
[2018-12-10] MEDS ORDERED: ASPIRIN EC 81 MG TABLET PO SCH (09:00)
[2018-12-10] MEDS: Insulin Lispro Flexpen 300 UNIT/3 ML INSULN.PEN SUBCUT SCH ×4 (09:15→20:12)
[2018-12-10] MEDS: HALOPERIDOL 1 MG TABLET PO SCH (09:16)
--- NOTE | 2018-12-10 09:23 | ORTHO.PROG ---
Last Taken Vital Signs: Vital Signs - Last Taken Temperature 99.2 F 12/10/18 06:22 Pulse Rate 88 12/10/18 07:00 Respiratory Rate 16 12/10/18 06:22 Blood Pressure 130/57 12/10/18 06:22 Pulse Ox 94 12/10/18 06:22 Subjective: Patient states she is not sure if she has any pain. Otherwise she feels okay. Objective: Examination shows that the Provine a dressing is placed her deep drain is in place. Patient with a total of 80 mL from the time of surgery. This looks more serous he at this point a little old blood in the drain. Since emptying this morning really nothing significant. Motor and sensory seems reasonable though poor participation with examination. Laboratory Results 12/09/18 12/09/18 12/10/18 11:51 15:40 04:10 WBC 11.86 H RBC 3.44 L Hgb 10.9 L Hct 34.8 L MCV 101.2 H MCH 31.7 H MCHC 31.3 L RDW Std Deviation 44.5 RDW Coeff of Darleen 12.4 Plt Count 163 MPV 9.9 Immature Gran % (Auto) 0.2 Neut % (Auto) 80.6 H Lymph % (Auto) 10.8 Taylor % (Auto) 6.4 Eos % (Auto) 1.9 Baso % (Auto) 0.1 Immature Gran # (Auto) 0.02 Neut # (Auto) 9.57 Lymph # (Auto) 1.28 Taylor # (Auto) 0.76 Eos # (Auto) 0.22 Baso # (Auto) 0.01 WBC Morphology Comment Normal morphology Plt Morphology Comment Normal morphology RBC Morph Comment Normal morphology Sodium Potassium Chloride Carbon Dioxide Anion Gap BUN Creatinine Estimated GFR BUN/Creatinine Ratio Glucose Calculated Osmolality Calcium Ur Collection Type Clean catch urine Urine Color Yellow Urine Clarity Clear Urine pH 7.0 Ur Specific [place] 1.015 Urine Protein Negative Urine Glucose (UA) Negative Urine Ketones Negative Urine Occult Blood Negative Urine Nitrate Negative Urine Bilirubin Negative Urine Urobilinogen 0.2 Ur Leukocyte Esterase Small Urine RBC 0-1 Urine WBC 5-10 Ur Squamous Epith Cells Rare Ur Renal Epithelial Cell None Urine Crystals None Urine Bacteria Moderate H Urine Casts None Urine Mucus Rare Urine Trichomonas None Urine Yeast None Blood Type O POSITIVE Antibody Screen Negative 12/10/18 04:10 WBC RBC Hgb Hct MCV MCH MCHC RDW Std Deviation RDW Coeff of Darleen Plt Count MPV Immature Gran % (Auto) Neut % (Auto) Lymph % (Auto) Taylor % (Auto) Eos % (Auto) Baso % (Auto) Immature Gran # (Auto) Neut # (Auto) Lymph # (Auto) Taylor # (Auto) Eos # (Auto) Baso # (Auto) WBC Morphology Comment Plt Morphology Comment RBC Morph Comment Sodium 141 Potassium 5.1 Chloride 106 Carbon Dioxide 30 Anion Gap 5 BUN 21 Creatinine 1.2 Estimated GFR Emission Specialist BUN/Creatinine Ratio 17.50 Glucose 138 H Calculated Osmolality 296.0 H Calcium 8.2 L Ur Collection Type Urine Color Urine Clarity Urine pH Ur Specific [place] Urine Protein Urine Glucose (UA) Urine Ketones Urine Occult Blood Urine Nitrate Urine Bilirubin Urine Urobilinogen Ur Leukocyte Esterase Urine RBC Urine WBC Ur Squamous Epith Cells Ur Renal Epithelial Cell Urine Crystals Urine Bacteria Urine Casts Urine Mucus Urine Trichomonas Urine Yeast Blood Type Antibody Screen Vital Signs (Last 8 hours) Temp Pulse Resp BP BP Pulse Ox 12/10/18 07:00 88 12/10/18 06:22 99.2 F 88 16 130/57 94 12/10/18 04:09 97.6 F 82 18 115/50 93 12/10/18 03:41 96 Intake and Output - 8hrs 12/09/18 12/09/18 12/10/18 12/10/18 13:59 21:59 05:59 13:59 Intake: IV 900 / 1482 582 / 1482 Intake Oral Amount 100 / 100 Output: Output, Drainage Amount 10 / 80 70 / 80 Right Anterior Hip 70 / 70 right hip 10 / 10 Output, Urinary Catheter Amount 850 / 1375 400 / 1375 125 / 1375 Output, Urine Amount 850 / 850 Output, Estimated Blood Loss 125 / 125 Amount Other: Percent Meal Consumed Breakfast NPO Drains Hemovac Negative Pressure Drain right hip Hemovac Assessment: Right hemiarthroplasty overall doing well patient in chair mobilized to chair with maximum assist with physical therapy. Plan: At the current time we will continue with physical therapy and occupational therapy. We will use a pneumatic sequential devices on her As Well As Aspirin 81 Mg in the Morning and and Is in the 81 Mg in the Evening. Pain Control with Hydrocodone and IV with Fentanyl As Needed since She Is Allergic to Morphine. Therapy Had Seen Her This Morning and [place] She Was Potentially Some Issues with Swallowing and That Is Going to Be Worked up and Change Her Diet at This Point until We Can See If This May Be More Medication and Surgery Related or More of a Chronic Issue. She Was on a standard diabetic diet at [facility] so this may just be secondary to medications fatigue but therapy will follow her and test her for swallowing. We'll remove the drain when she is back in bed can leave the Prevena in place.
[2018-12-10] MEDS: HYDROcodone-APAP 7.5 MG-325 MG TABLET PO PRN ×4 (09:28→22:05)
[2018-12-10] MEDS: ACETAMINOPHEN 500 MG TABLET PO SCH (11:07)
[2018-12-10] MEDS: MELATONIN 3 MG PO SCH (20:48)
[2018-12-11] MEDS: fentaNYL Inj 100 MCG/2 ML VIAL IVP PRN ×2 (00:41→07:51)
[2018-12-11 04:48] LABS: BASOPHILS # (AUTO) 0.02 10*3/UL; BASOPHILS % (AUTO) 0.2 % (0-1); EOSINOPHILS # (AUTO) 0.29 10*3/UL; EOSINOPHILS % (AUTO) 2.4 % (0-8); Hematocrit [HCT] 32.5 % (37.0-47.0); Hemoglobin [HGB] 10.2 g/dL (12.0-16.0); LYMPHOCYTES # (AUTO) 0.92 10*3/uL; MEAN CORPUSCULAR HGB CONC 31.4 g/dL (33-37); MEAN CORPUSCULAR VOLUME 100.9 FL (81-99); MEAN PLATELET VOLUME 10.2 FL (7.4-12.2); MONOCYTES # (AUTO) 0.86 10*3/UL (0.3-0.8); MONOCYTES % (AUTO) 7.1 % (5-15); NEUTROPHILS # (AUTO) 9.99 10*3/UL; NEUTROPHILS % (AUTO) 82.5 % (50-80); RED BLOOD COUNT 3.22 10^6/uL (4.20-5.40)
[2018-12-11 04:49] LABS: PLATELET MORPHOLOGY COMMENT NORMAL MORPHOLOGY (NORM); RBC MORPHOLOGY COMMENT NORMAL MORPHOLOGY (NORM); WBC MORPHOLOGY COMMENT NORMAL MORPHOLOGY (NORM)
[2018-12-11 05:02] LABS: BLOOD UREA NITROGEN 19 mg/dL (7-22); BUN/CREATININE RATIO 17.27 (6-20)
[2018-12-11] MEDS: Cefepime Inj 2 GM in Sodium Chloride 0.9% 100 ML IV SCH (05:40)
[2018-12-11] MEDS: HYDROcodone-APAP 7.5 MG-325 MG TABLET PO PRN ×3 (07:52→21:01)
[2018-12-11] MEDS: Insulin Lispro Flexpen 300 UNIT/3 ML INSULN.PEN SUBCUT SCH ×4 (07:54→21:02)
[2018-12-11] MEDS: ASPIRIN EC 81 MG TABLET PO SCH ×2 (09:23→21:01)
[2018-12-11] MEDS: HALOPERIDOL 1 MG TABLET PO SCH (09:23)
[2018-12-11] MEDS: DOCUSATE 100 MG CAPSULE PO SCH ×2 (09:23→21:02)
[2018-12-11] MEDS: Sodium Chloride 0.9% 1,000 ML PRIMARY IV SCH (09:25)
--- NOTE | 2018-12-11 11:22 | PDOC(PROG) ---
Interval History: Doing well no complaints no pain. Objective : Data - Labs CBC and BMP: 12/11/18 04:20 12/11/18 04:20 Objective : Exam - General General Appearance: Cooperative - Cardiovascular Cardiovascular Exam: RRR, No Murmur, No Clicks, No Gallops, No Rubs, PMI Non- Displaced - GI/Abdominal GI/Abdominal Exam: Normal Bowel Sounds, Non Tender, Non Distended, Soft, No Masses, No Hepatomegaly, No Splenomegaly, No Organomegaly - Extremities Extremities Exam: No Clubbing Present, No Edema Present, No Cyanosis Present Assessment and Plan - Patient Problems (1) Hip fracture Current Visit: Yes Status: Acute Comment: Continue PTOT aspirin for anticoagulation I will stop IV fluids Code(s): S72.009A - Fracture of unspecified part of neck of unspecified femur, initial encounter for closed fracture (2) Diabetes Current Visit: Yes Status: Acute Comment: Sliding scale Code(s): E11.9 - Type 2 diabetes mellitus without complications (3) Dementia Current Visit: Yes Status: Acute Comment: Stable continue home meds Code(s): F03.90 - Unspecified dementia without behavioral disturbance (4) UTI (urinary tract infection) Current Visit: Yes Status: Acute Comment: We'll stop cefepime start ceftriaxone total of 5 days Code(s): N39.0 - Urinary tract infection, site not specified
[2018-12-11] MEDS ORDERED: cefTRIAXone Inj 2 GM in Sodium Chloride 0.9% 100 ML IV SCH ×2 (11:30→14:00)
[2018-12-11] MEDS: ACETAMINOPHEN 500 MG TABLET PO SCH (13:51)
--- NOTE | 2018-12-11 17:32 | OT.PROG ---
Progress Note Progress Note: S: pt was not real verbal today. Although she was able to mumble "i need to get up". O: pt was seen in her room and was a x2 man mod A STS and was able to transfer to bed with verbal cueing. she needed mod A x2 throughout transfer as well. Bed mobility also completed x2 man max A to supine position in bed. A: pt participated better this afternoon. P: continue per POC.
--- NOTE | 2018-12-11 17:37 | ORTHO.PROG ---
Last Taken Vital Signs: Vital Signs - Last Taken Temperature 98.2 F 12/11/18 16:09 Pulse Rate 71 12/11/18 16:09 Respiratory Rate 12 12/11/18 16:09 Blood Pressure 116/54 12/11/18 16:09 Pulse Ox 98 12/11/18 16:09 Subjective: Patient doing well this morning Objective: Dressings are in place no active issues she moves her foot and ankle as well on the right and left equal. No significant swelling difference good pulses brisk refill denies any calf or popliteal adductor hiatus pain. Laboratory Results 12/11/18 12/11/18 04:20 04:20 WBC 12.11 H RBC 3.22 L Hgb 10.2 L Hct 32.5 L MCV 100.9 H MCH 31.7 H MCHC 31.4 L RDW Std Deviation 44.1 RDW Coeff of Darleen 12.3 Plt Count 150 MPV 10.2 Immature Gran % (Auto) 0.2 Neut % (Auto) 82.5 H Lymph % (Auto) 7.6 L Carroll % (Auto) 7.1 Eos % (Auto) 2.4 Baso % (Auto) 0.2 Immature Gran # (Auto) 0.03 Neut # (Auto) 9.99 Lymph # (Auto) 0.92 Carroll # (Auto) 0.86 H Eos # (Auto) 0.29 Baso # (Auto) 0.02 WBC Morphology Comment Normal morphology Plt Morphology Comment Normal morphology RBC Morph Comment Normal morphology Sodium 139 Potassium 4.5 Chloride 103 Carbon Dioxide 31 Anion Gap 5 BUN 19 Creatinine 1.1 Estimated GFR Design Engineering Intern BUN/Creatinine Ratio 17.27 Glucose 175 H Calculated Osmolality 293.0 H Calcium 8.4 L Vital Signs (24 hrs) 12/10/18 19:00 12/10/18 20:02 12/11/18 00:16 Temperature 98.3 F 98.0 F Pulse Rate [Pulse Oximeter] 75 78 97 Respiratory Rate 16 16 Blood Pressure [Left Arm] 124/54 Blood Pressure [Right Arm] 137/55 Pulse Ox 99 93 12/11/18 04:21 12/11/18 05:46 12/11/18 07:00 Temperature 99.5 F Pulse Rate [Pulse Oximeter] 87 88 Respiratory Rate 18 Blood Pressure [Left Arm] 137/61 Blood Pressure [Right Arm] Pulse Ox 97 97 12/11/18 07:03 12/11/18 11:19 12/11/18 16:09 Temperature 99.5 F 98.6 F 98.2 F Pulse Rate [Pulse Oximeter] 88 80 71 Respiratory Rate 20 16 12 Blood Pressure [Left Arm] 135/60 115/67 Blood Pressure [Right Arm] 116/54 Pulse Ox 97 97 98 Assessment: Right hemiarthroplasty after femoral neck fracture doing well History of dementia, insulin-dependent diabetes2 Plan: Patient will continue with current course of treatment of anticoagulation with aspirin and pneumatic sequentials, physical therapy and occupational therapy to continue. Pain medication with oral and IV as needed. Patient will continue with the negative pressure dressing of the current time.
[2018-12-11] MEDS: POTASSIUM CLAVULANATE PO SCH (20:59)
[2018-12-11] MEDS: AMOX PO SCH (20:59)
[2018-12-11] MEDS: MELATONIN 3 MG PO SCH (21:03)
[2018-12-12 04:44] LABS: BASOPHILS # (AUTO) 0.02 10*3/UL; BASOPHILS % (AUTO) 0.2 % (0-1); EOSINOPHILS % (AUTO) 3.7 % (0-8); Hematocrit [HCT] 33.1 % (37.0-47.0); Hemoglobin [HGB] 10.2 g/dL (12.0-16.0); LYMPHOCYTES # (AUTO) 1.47 10*3/uL; MEAN CORPUSCULAR HGB CONC 30.8 g/dL (33-37); MEAN CORPUSCULAR VOLUME 100.9 FL (81-99); MEAN PLATELET VOLUME 10.2 FL (7.4-12.2); MONOCYTES # (AUTO) 0.99 10*3/UL (0.3-0.8); MONOCYTES % (AUTO) 9.1 % (5-15); NEUTROPHILS # (AUTO) 8.01 10*3/UL; NEUTROPHILS % (AUTO) 73.4 % (50-80); RED BLOOD COUNT 3.28 10^6/uL (4.20-5.40)
[2018-12-12 04:51] LABS: PLATELET MORPHOLOGY COMMENT NORMAL MORPHOLOGY (NORM); RBC MORPHOLOGY COMMENT NORMAL MORPHOLOGY (NORM); WBC MORPHOLOGY COMMENT NORMAL MORPHOLOGY (NORM)
[2018-12-12 04:55] LABS: BLOOD UREA NITROGEN 19 mg/dL (7-22)
--- NOTE | 2018-12-12 07:59 | ORTHO.PROG ---
Last Taken Vital Signs: Vital Signs - Last Taken Temperature 99.2 F 12/12/18 06:48 Pulse Rate 83 12/12/18 06:48 Respiratory Rate 16 12/12/18 06:48 Blood Pressure 147/66 12/12/18 06:48 Pulse Ox 97 12/12/18 06:48 Subjective: Patient doing better today more communicative Objective: Patient notes having pain in the hip with motion otherwise at rest seems to do fine. No calf or popliteal adductor hiatus pain. Mild swelling in the legs but seems very symmetric. Leg is with dressing negative pressure device in place no active issues. Laboratory Results 12/12/18 12/12/18 04:15 04:15 WBC 10.90 H RBC 3.28 L Hgb 10.2 L Hct 33.1 L MCV 100.9 H MCH 31.1 H MCHC 30.8 L RDW Std Deviation 44.0 RDW Coeff of Darleen 12.3 Plt Count 174 MPV 10.2 Immature Gran % (Auto) 0.1 Neut % (Auto) 73.4 Lymph % (Auto) 13.5 [place] % (Auto) 9.1 Eos % (Auto) 3.7 Baso % (Auto) 0.2 Immature Gran # (Auto) 0.01 Neut # (Auto) 8.01 Lymph # (Auto) 1.47 [place] # (Auto) 0.99 H Eos # (Auto) 0.40 Baso # (Auto) 0.02 WBC Morphology Comment Normal morphology Plt Morphology Comment Normal morphology RBC Morph Comment Normal morphology Sodium 141 Potassium 4.4 Chloride 104 Carbon Dioxide 33 Anion Gap 4 L BUN 19 Creatinine 1.0 Estimated GFR [employer] Ticketer BUN/Creatinine Ratio 19.00 Glucose 146 H Calculated Osmolality 296.0 H Calcium 9.0 Vital Signs (24 hrs) 12/11/18 11:19 12/11/18 16:09 12/11/18 19:39 Temperature 98.6 F 98.2 F 98.6 F Pulse Rate [Pulse Oximeter] 80 71 83 Respiratory Rate 16 12 18 Blood Pressure [Left Arm] 115/67 132/57 Blood Pressure [Right Arm] 116/54 Pulse Ox 97 98 98 12/11/18 23:54 12/12/18 04:15 12/12/18 05:25 Temperature 98.2 F 97.9 F Pulse Rate [Pulse Oximeter] 66 75 Respiratory Rate 16 16 Blood Pressure [Left Arm] 124/50 139/60 Blood Pressure [Right Arm] Pulse Ox 98 97 97 12/12/18 06:48 Temperature 99.2 F Pulse Rate [Pulse Oximeter] 83 Respiratory Rate 16 Blood Pressure [Left Arm] 147/66 Blood Pressure [Right Arm] Pulse Ox 97 Assessment: Right hemiarthroplasty overall doing well. Plan: Patient will continue with physical therapy occupational therapy. We will look at getting the dressing off and [place] dressing put on somewhere around a week ideally if it has to be before that then we can do that up and certainly would like to keep the negative pressure dressing on for week if we could. Pain control with oral and IV meds. DVT prophylaxis with pneumatic sequentials and aspirin.
[2018-12-12] MEDS: Insulin Lispro Flexpen 300 UNIT/3 ML INSULN.PEN SUBCUT SCH ×4 (09:39→21:24)
[2018-12-12] MEDS: HALOPERIDOL 1 MG TABLET PO SCH (09:42)
[2018-12-12] MEDS: ACETAMINOPHEN 500 MG TABLET PO PRN (10:48)
[2018-12-12] MEDS: POTASSIUM CLAVULANATE PO SCH ×2 (10:55→21:26)
[2018-12-12] MEDS: AMOX PO SCH ×2 (10:55→21:26)
[2018-12-12] MEDS: ASPIRIN EC 81 MG TABLET PO SCH ×2 (10:55→21:25)
[2018-12-12] MEDS: DOCUSATE 100 MG CAPSULE PO SCH ×2 (10:56→21:25)
--- NOTE | 2018-12-12 11:18 | PDOC(PROG) ---
Interval History: Patient is not very talkative today daughter at bedside with the nurse and Ginny patient was crying but did not complain of any pain. Objective : Data - Labs CBC and BMP: 12/12/18 04:15 12/12/18 04:15 Objective : Exam - General General Appearance: Cooperative, Mild Distress - Respiratory Respiratory Exam: Clear to Auscultation - Bilaterally, Breathing Non Labored, Normal To Percussion, Normal to Percussion and Palpation - Cardiovascular Cardiovascular Exam: RRR, No Murmur, No Clicks, No Gallops, No Rubs, PMI Non-Displaced - GI/Abdominal GI/Abdominal Exam: Normal Bowel Sounds, Non Tender, Non Distended, Soft, No Masses, No Hepatomegaly, No Splenomegaly, No Organomegaly - Extremities Extremities Exam: No Clubbing Present, No Edema Present, No Cyanosis Present Assessment and Plan - Patient Problems (1) Hip fracture Current Visit: Yes Status: Acute Comment: Continue PTOT and anticoagulation as per Dr. Lugo Code(s): S72.009A - Fracture of unspecified part of neck of unspecified femur, initial encounter for closed fracture (2) Diabetes Current Visit: Yes Status: Acute Comment: Stable at present time continue sliding scale Code(s): E11.9 - Type 2 diabetes mellitus without complications (3) Dementia Current Visit: Yes Status: Acute Comment: Patient was crying today not eating much we modified her diet since she has a swallow difficulty. We will hold the Haldol this morning. Code(s): F03.90 - Unspecified dementia without behavioral disturbance (4) UTI (urinary tract infection) Current Visit: Yes Status: Acute Comment: She has been switched over to by mouth antibiotics since she lost her IV site left shift is resolved so is the white count I believe things are improved due to total of 5 days Code(s): N39.0 - Urinary tract infection, site not specified
--- NOTE | 2018-12-12 11:54 | PT.PROG ---
Progress Note Progress Note: S. Patient's daughter stated that she mentioned she wanted to sit in the chair. O. Patient was transferred from supine to seated at the edge of bed then performed sit to stand x 2 and ambulated 3 feet then was dependent transferred to the chair and was left with alarm and call light. A. patient required max assist x 2 for transfers and ambulation. She would continue to benefit from skilled therapy to increase strength, mobility and safety at this time. P. Continue POC.
[2018-12-12] MEDS: ACETAMINOPHEN 500 MG TABLET PO SCH (13:30)
--- NOTE | 2018-12-12 13:49 | DI ---
MRI BRAIN SCAN WITHOUT IV CONTRAST, 12/12/2018 12:08 PM: Clinical History: Unresponsive. Prior Exam: None at this facility. Comparison Exam: None. Sequences: Sagittal [id number]; axial T2 weighted and FLAIR. Axial diffusion weighted images with ADC mapping. 4th Ventricle: Normal. 3rd Ventricle: Moderately dilated. Lateral Ventricles: Moderately severely dilated. Sella: Normal size and normal pituitary gland. Cerebrum: No acute hemorrhagic or bland infarct. No small vessel ischemic disease. There are a few sm all punctate hyperintensities measuring between 3-5 mm in both frontal lobes of uncertain clinical si gnificance or etiology. Cerebellum: Normal. No cerebellopontine angle mass. Cerebellar Tonsils: Normal position. Brainstem: Normal. Diffusion Weighted Imaging: Normal. Atrophy: Moderately severe cerebellar and cerebral atrophy. Extracerebral Mantles/Midline Shift: No extracerebral mantle or dural lesion. No midline shift. Sinuses: Normal. Readin. No acute hemorrhagic or bland infarct. No significant small vessel ischemic disease noted. Bilate ral small punctate hyperintensities in the white matter of both frontal lobes. These are of uncertain clinical significance or etiology. 2. Moderately severe cerebellar and cerebral atrophy. 3. Normal diffusion weighted imaging with ADC mapping.
--- NOTE | 2018-12-12 13:57 | DI ---
MR ANGIOGRAPHY OF THE [place], 12/12/2018 1:00 PM: Clinical History: Unresponsive. Not talkative. Previous Exam: None at this facility. Technique: High resolution axial 3D thin slice time of flight scans are performed for the arterial ph ase. 3D MIPS reconstructions are obtained. Vertebral Arteries: Normal. The left vertebral artery is dominant. Only a very small right vertebral artery is visualized in it probably supplies primarily only the right AICA. Basilar Artery: Normal. There is no basilar tip aneurysm or aneurysm arising from the vertebral-basil ar branches. Posterior Communicating Arteries: There is a normal right posterior communicating artery and no left posterior communicating artery. The right posterior communicating artery primarily feeds the right paz perior cerebellar artery territory with a very atretic right superior cerebellar artery arising from the basilar artery. Anterior Communicating Artery: No anterior communicating artery is identified A1-A2 Segments of Anterior Cerebral Arteries: Normal. M1-M4 Segments of Middle Cerebral Arteries: Normal. No branch occlusion is seen in the region of the frontal opercula corresponding to Broca's speech center. Reading: Negative MR angiogram scan of the [place].
--- NOTE | 2018-12-12 16:16 | OT.PROG ---
Progress Note Progress Note: S: pt was confused, but talkative. She asked several times who we were. o: pt was seen in her room in supine position in bed. She needed max a x2 bed mobility and max A x2 transfer apprx 4-5 ft to recliner. Chair mobility completed with max A x2 as well. she was left in chair with alarm on and call light within reach. Nursing was notified. A: pt is very limited in her functional transitions/transfers. Continue x2 person treatment for safe transfers. P: Continue per POC.
[2018-12-12] MEDS: MELATONIN 3 MG PO SCH (21:26)
[2018-12-13] MEDS: Insulin Lispro Flexpen 300 UNIT/3 ML INSULN.PEN SUBCUT SCH ×4 (08:22→23:04)
--- NOTE | 2018-12-13 08:22 | PDOC(PROG) ---
Date of Service: 12/13/18 Time of Service: 08:10 Interval History: Subjective Patient was laying in bed, she did wake up in response to verbal stimuli. She said she didn't eat yet. She doesn't know how did she end up in the hospital. She has a history of dementia. She seemed to be calm though. On talking to the nursing staff she did not eat much yesterday or drink much. She is willing to try today. Objective : Data - Labs CBC and BMP: 12/12/18 04:15 12/12/18 04:15 Objective : Exam - General General Appearance: No Acute Distress, Cooperative, Obese - Head Head Exam: Normal Inspection - Eye Eye Exam: Normal Appearance - ENT ENT Exam: Normal Exam - Neck Neck Exam: Normal Inspection - Respiratory Respiratory Exam: Clear to Auscultation - Bilaterally - Cardiovascular Cardiovascular Exam: RRR - GI/Abdominal GI/Abdominal Exam: Normal Bowel Sounds, Non Tender, Non Distended, Soft, No Organomegaly - Rectal Rectal Exam: Deferred - External Exam: Deferred Exam: Deferred - Extremities Extremities Exam: Normal Inspection Additional Extremities Exam Details: No edema noted. - Neurological Neurological Exam: Alert, CN II-XII Intact, No Facial Droop, Speech Intact / Clear, Moves All Extremities Equally Additional Neurological Exam Details: Does not know the day or the month or why she is here to the hospital - Psychiatric Psychiatric Exam: Flat Affect - Integumentary Integumentary Exam: Normal Color Assessment and Plan - Patient Problems (1) Hip fracture Current Visit: Yes Status: Acute Comment: Status post surgery. continue PT and OT. For pain control will DC the hydrocodone and fentanyl. She doesn't have an IV now. she refused apparently IV yesterday. Since she was sleepy yesterday we'll DC the hydrocodone. We'll just keep her on Tylenol as needed. Code(s): S72.009A - Fracture of unspecified part of neck of unspecified femur, initial encounter for closed fracture (2) Diabetes Current Visit: Yes Status: Acute Comment: Continue sliding scale. Code(s): E11.9 - Type 2 diabetes mellitus without complications (3) Dementia Current Visit: Yes Status: Acute Comment: She has history of underlying dementia. Was on Haldol at the halfway however she did not receive it while she is been here. We'll restart Namenda will restart the Zoloft Code(s): F03.90 - Unspecified dementia without behavioral disturbance (4) UTI (urinary tract infection) Current Visit: Yes Status: Acute Comment: She is on Augmentin. Continue. growth showed Escherichia coli. Code(s): N39.0 - Urinary tract infection, site not specified
[2018-12-13] MEDS: ACETAMINOPHEN 500 MG TABLET PO PRN ×2 (08:51→21:21)
[2018-12-13] MEDS: ASPIRIN 81 MG (BABY) CHEWABLE TABLET PO SCH ×2 (08:54→21:23)
[2018-12-13] MEDS: MEMANTINE 10 MG TABLET PO SCH ×2 (09:36→21:23)
[2018-12-13] MEDS: POTASSIUM CLAVULANATE PO SCH ×2 (10:33→21:24)
[2018-12-13] MEDS: AMOX PO SCH ×2 (10:33→21:24)
--- NOTE | 2018-12-13 11:20 | OTI REPORT ---
Thank you for the referral of Fatoumata Sinclair. She was seen on 12/10/18 for an occupational therapy inpatient evaluation secondary to weakness. SUBJECTIVE: The patient is a 78-year-old female who is being seen secondary to having a hip fracture and surgery performed by Dr. Lugo. Prior to admission she was in the memory unit at the [facility] and fell and broke her right hip. The patient was not able to give much history. She did follow simple one step commands but tended to get a little overwhelmed. She does have dementia/Alzheimer's which led her to having difficulty processing some of the tasks asked of her today. Nursing staff reports the patient is on pain medications, which may be affecting her cognition and ability to stay focused. PAST MEDICAL HISTORY: Past medical history can be found in the patient's medical record. OBJECTIVE FINDINGS: General observations: The patient tried to open her eyes. 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 Her left eye opened 50% of the time during the evaluation. The patient was not able to state her hip precautions. Dr. Lugo did report that she can put full weight on her leg as needed. Cognition: The patient was able to follow simple two to three word commands. If asked to do multiple steps at a time, she had difficulty completing this. Bed mobility: The patient was able to move legs to edge of bed with max assist. While sitting edge of bed she required min assist to keep her balance. Transfers: The patient completed a functional transfer with max assist x3. One person had to move her left lower extremity to turn in a stand pivot and two people had to hold the patient up. The patient tended to lean forward and had difficulty following directions of keeping her arms straight while completing the functional transfer. Activities of daily living: The patient was not able to follow directions to complete dressing tasks. Range of motion: Shoulder flexion is 100 degrees bilaterally. Elbow and wrist flexion/extension are within normal limits. ASSESSMENT: It was hard to differentiate the patient's cognitive abilities to perform ADLs. Since the patient is on the Alzheimer's unit, she probably will not be able to comprehend a nursery manager and a sock aide; however, once her pain medications have been decreased and her ability to focus improves, we may try these at least one time to see if she is able to comprehend using them. Problem List: Decreased cognition Decreased ability to complete ADLs Decreased ability to complete functional transfers Decreased upper extremity strength/range of motion Short-Term Goals: To be met by discharge from inpatient: Patient will be able to complete a bed to chair transfer with mod assist. Patient will be able to complete simple hygiene activities after set up with minimal verbal cues. Patient will be able to complete a commode/toilet transfer with min assist. Long-Term Goals: To be met following discharge from inpatient: Patient will return back to the [facility] with 24-hour care, demonstrating the ability to complete functional transfers and ADLs with min assist. TREATMENT PLAN: Patient will be seen B.I.D during the week and one time per day over the weekend as an inpatient to address the above goals and objectives. INITIAL TREATMENT: Treatment today consisted of the initial evaluation activities only. SHIRA
--- NOTE | 2018-12-13 11:33 | PT.PROG ---
Progress Note Progress Note: Treatment Time: 09:25 Subjective: Pt sitting semi sen position upon entering. Pt appeared to be in discomfort w/ teary eyes and was unable to verbalize cause of discomfort or pain level when asked. Pt stated she felt a bowl movement but unable to pass when transferred to commode. Objective: PT initiated Sup<>sit transfer w/ elevated HOB, Max A x3. Sitting EOB, Min A, Max VC to use BUE for stabilizing trunk in upright. Bed to commode, and commode to recliner, stand-pivot transfer, Max A x2, Max VC to stand w/ trunk upright and pivot stepping sequence. Sitting scooting mobility, Max A x2. Ther-ex: BLE LAQ and knee raises in sitting, 10x1 each. Co-treatment w/ OT. Assessment: Pt tolerated session w/o adverse reaction. Pt demonstrated decreased discomfort after transferring to recliner. Following treatment, pt left sitting upright in recliner w/ x2 daughters in room, call button in reach, and chair alarm activated. Plan: Continue POC, possible DC to half-way. Signed by Jim Armenta, PT, DPT
--- NOTE | 2018-12-13 11:51 | OTI REPORT ---
Thank you for the referral of Fatoumata Aguilar. She was seen on 12/10/18 for an occupational therapy swallow evaluation. SUBJECTIVE: The patient is a 78-year-old female who is being seen for a swallow evaluation today secondary to the patient coughing a few different times in front of nursing staff and while taking medication and while drinking water. PAST MEDICAL HISTORY: Past medical history can be found in the patient's medical record. OBJECTIVE FINDINGS: Pre-Swallow Assessment: Volitional dry swallow: The patient's volitional dry swallow was weak. Following directions: The patient required increased processing time to follow directions. Dentition: The patient did not have dentures in when the therapist arrived. They stated that she has top dentures; however, when the top dentures were placed in her mouth they were too loose and did not fit appropriately and it was more of a hazard to have them in. Tongue range of motion: The patient was able to demonstrate her tongue sticking out to her lips and lateralization to her cheek, but had difficulty following these commands. The patient was able to click her tongue with increased time. Swallow Assessment: The patient was not able to feed herself today. She needed assistance for meal management and being able to bring food to mouth. The patient was observed eating puree with her crushed medications, which went down well. Prior to this, the patient took a drink of water and did not demonstrate coughing. She then took a drink of water and coughed profusely with use of a straw. It was more of an aspiration type cough. We then had the patient try nectar thickened liquid. The patient was able to drink this without coughing and without difficulty. The patient was asked to eat mechanical soft peaches. The patient lost focus and had difficulty being able to initiate swallowing the peaches. She still had chunks of peaches in her mouth after one minute, which poses safety issues with having textures in her mouth. The patient's alertness level fluctuated. Her left eye closed quite frequently and she lost focus frequently. ASSESSMENT/RECOMMENDATIONS: 1. The patient should be placed on a puree and nectar thickened liquid diet. OT will assess the patient daily to see if we can upgrade diet. Her alertness levels make it difficult to assess her true abilities at this point. The patient is also on pain medications and she is having difficulty focusing for longer periods of time and processing that she is eating a meal. 2. The patient will need to have assistance to complete meals. She does not initiate feeding herself at this time. 3. [facility] was called and they reported that the patient was on a regular diet with thin liquids prior to her fall. Short-Term Goals: To be met by discharge from inpatient: Patient will be able to feed herself 50% of her meal independently. Patient will increase strength and be able to tend to meal for a minimum of 5 minutes. Patient will demonstrate no external signs of aspiration with current meals. Patient will be able to drink thin liquid with food without external signs of aspiration. Patient will be able to eat mechanical soft food without difficulty and will be able to clear all sulci and oral areas 100% of the time. Long-Term Goals: To be met following discharge from inpatient: Patient will return to regular food and thin liquids without external signs of aspiration. TREATMENT PLAN: Patient will be seen PRN for swallowing activities while she is an inpatient. INITIAL TREATMENT: Treatment today consisted of the swallow evaluation only. SHIRA
--- NOTE | 2018-12-13 11:53 | OT AM DAY ---
Diagnosis : Hip Fracture/Weakness AM - Occupational Therapy S: The therapist did check with staff and they stated that the patient was having a lot of difficulty today with alertness levels. They have been having to feed her pureed foods, but she hardly eats more than a couple of bites at a time. Her alertness levels are still in and out. We will continue with the pureed and nectar thickened liquids. P: Continue seeing patient BID during the week and one time per day over the weekend until discharge. SHIRA
--- NOTE | 2018-12-13 12:06 | PTI REPORT ---
Thank you for the referral of Fatoumata Aguilar. She was seen on 12/11/18 for an inpatient evaluation status post right hip fracture and repair. SUBJECTIVE: The patient is a 78-year-old female who presents with orders secondary to a right hip fracture and subsequent repair. Per patient's nursing staff, she is to be weight-bearing as tolerated. They did state that yesterday when they transferred her it did take three people as she had a very difficult time. The patient also has difficulties with answering questions and is a poor historian. Per nursing staff, the patient would ambulate in the halls at the [facility] where she is a resident. She did not use an assistive device but did lean heavily into the parker at times in order to stay upright and ambulate. PAST MEDICAL HISTORY: Past medical history can be found in the patient's medical record. OBJECTIVE FINDINGS: General observations: The patient is asleep upon PT arrival. The therapist did try to arouse patient and she would very minimally open up her left eye at times. She was unable to provide any history and appeared very lethargic. Pain: When asked if the patient had pain, she stated yes. The therapist asked the patient multiple times where her pain was at and tried having the patient point to where her pain was but she was not able to complete this activity. Bed mobility: The patient required max cueing and max assist of two in order to go from supine to seated edge of bed position. Once in a seated edge of bed position the patient needed some cueing in order to stay upright but was able to do so with fair to poor trunk stability. Transfers: A gait belt was placed around the patient and with max assist x2 the patient was able to transfer from a seated to standing position. Once in a standing position, she did require max assist and tactile cueing to put her hands on the walker. Ambulation: We tried to instruct the patient on ambulation. She did require assist of two to maintain an upright position as well as maximal verbal and tactile cueing and assist with helping to move her feet. She actually did pretty well with moving the right foot and only needed about 50% cueing and assistance to lift that foot. With her left foot she required approximately 100% assistance to help maneuver. The patient was able to go approximately 10 feet. At that time she required assist of two to transfer down into her recliner chair. ASSESSMENT: The patient has fair rehab potential secondary to her age, cognition, and past medical history. Short-Term Goals: To be met by discharge from inpatient: Patient will be able to transfer from bed to stand with moderate assistance. Patient will be able to transfer from bed to chair with least restrictive assistive device safely with assist at least 20 feet. Long-Term Goals: To be met following discharge from inpatient: Patient will return back to the [facility] where she is a resident and receive formal therapy if appropriate at time of readmission. TREATMENT PLAN: Patient will be seen B.I.D during the week and one time per day over the weekend as an inpatient to address the above goals and objectives. INITIAL TREATMENT: Treatment today consisted of the initial evaluation. Following treatment the patient was left in chair. Once in chair, pillows were placed around the patient, chair alarm was set, and call light was placed within reach. SHIRA
[2018-12-13] MEDS: ACETAMINOPHEN 500 MG TABLET PO SCH (12:22)
[2018-12-13] MEDS: DOCUSATE 100 MG CAPSULE PO SCH ×2 (12:22→21:21)
[2018-12-13] MEDS: HALOPERIDOL 1 MG TABLET PO SCH (14:00)
--- NOTE | 2018-12-13 14:00 | ORTHO.PROG ---
Last Taken Vital Signs: Vital Signs - Last Taken Temperature 98.8 F 12/13/18 11:42 Pulse Rate 79 12/13/18 11:42 Respiratory Rate 20 12/13/18 11:42 Blood Pressure 124/54 12/13/18 11:42 Pulse Ox 98 12/13/18 11:42 Subjective: Patient doing well today she is much more awake and communicative Objective: Examination shows dressing is clean and dry her motor and sensory exam in the lower extremity is reasonable popliteal adductor hiatus pain. Vital Signs (24 hrs) 12/12/18 16:44 12/12/18 20:46 12/13/18 00:41 Temperature 98.2 F 97.9 F 97.9 F Pulse Rate [Pulse Oximeter] 89 90 Respiratory Rate 16 18 Blood Pressure [Left Arm] 149/68 Blood Pressure [Right Arm] 139/57 Pulse Ox 97 100 12/13/18 05:00 12/13/18 05:29 12/13/18 07:00 Temperature 98.0 F Pulse Rate [Pulse Oximeter] 65 77 Respiratory Rate 20 Blood Pressure [Left Arm] Blood Pressure [Right Arm] 141/57 Pulse Ox 95 94 12/13/18 07:11 12/13/18 11:42 Temperature 98.1 F 98.8 F Pulse Rate [Pulse Oximeter] 72 79 Respiratory Rate 16 20 Blood Pressure [Left Arm] 124/54 Blood Pressure [Right Arm] 126/51 Pulse Ox 96 98 Assessment: Right hemiarthroplasty for hip fracture doing well history of dementia and diabetes insulin-dependent Plan: Continue current plan with physical therapy and occupational therapy. When patient leaves to go to the residential the dressing that she currently has should be removed and a Silverlon dressing applied. Continue DVT prophylaxis with pneumatic sequentials and aspirin.
--- NOTE | 2018-12-13 15:10 | OT.PROG ---
Progress Note Progress Note: S: pt stated that she did want some water and something to eat. O: tx consisted of UE biceps curls x 3 each with MOD A and MAX VCs, ADL task of feeding self with MAX A, drinking out of straw with MOD A. A: pt was able to attempt to hold cup to mouth and bring spoon to mouth. pt was unable to hold objects close to her mouth and needed assistance. pt attempted to feed self with spoon but was unable to process the action and lacked the strength to keep the spoon to her mouth long enough to eat off of it. P: continue POC
--- NOTE | 2018-12-13 16:38 | PT.PROG ---
Progress Note Progress Note: S: Nursing staff called to say that pt was wanting to get up from her chair. Did receive an order for a roho cushion. O: Tx consisted of: transfer from sitting to standing with max A x 2 and max v/c - pt required CONVEX GRINDER x2 on walker and tactile cuing to try to stand upright. Pt required max A x 2 with ambulatory activity x 5 ft - pt started to fatigue and required bed moved closer to transfer to seated EOB. Performed another STS with max A x 2 in order to get sitting better onto the bed. Max A x 2 to transfer fro m sitting to supine and to scoot pt up in bed. Pt was left in bed with nursing staff at that time. later, a roho cushion was brought up and placed in recliner chair. A: Pt continues to struggle with her mobility and requires consistent verbal and tactile cuing along with max A x 2 to be able to transfer from chair to bed. Roho cushion placed in chair to help prevent sores with sitting as pt is unable to reposition self to relieve pressure. P: Continue per POC.
[2018-12-13] MEDS ORDERED: Sertraline Tab 100 MG TAB PO SCH (21:00)
[2018-12-13] MEDS: MELATONIN 3 MG PO SCH (23:33)
[2018-12-14 04:48] LABS: BASOPHILS # (AUTO) 0.02 10*3/UL; BASOPHILS % (AUTO) 0.2 % (0-1); EOSINOPHILS # (AUTO) 0.31 10*3/UL; EOSINOPHILS % (AUTO) 3.2 % (0-8); Hematocrit [HCT] 31.9 % (37.0-47.0); Hemoglobin [HGB] 10.3 g/dL (12.0-16.0); LYMPHOCYTES # (AUTO) 1.66 10*3/uL; MEAN CORPUSCULAR HGB CONC 32.3 g/dL (33-37); MEAN CORPUSCULAR VOLUME 97.6 FL (81-99); MEAN PLATELET VOLUME 9.8 FL (7.4-12.2); MONOCYTES # (AUTO) 1.08 10*3/UL (0.3-0.8); MONOCYTES % (AUTO) 11.3 % (5-15); NEUTROPHILS # (AUTO) 6.45 10*3/UL; NEUTROPHILS % (AUTO) 67.7 % (50-80); RED BLOOD COUNT 3.27 10^6/uL (4.20-5.40)
[2018-12-14 04:51] LABS: PLATELET MORPHOLOGY COMMENT NORMAL MORPHOLOGY (NORM); RBC MORPHOLOGY COMMENT NORMAL MORPHOLOGY (NORM); WBC MORPHOLOGY COMMENT NORMAL MORPHOLOGY (NORM)
[2018-12-14 04:56] LABS: BLOOD UREA NITROGEN 25 mg/dL (7-22); BUN/CREATININE RATIO 27.77 (6-20)
[2018-12-14 07:46] VITALS: TEMP 97.4
--- NOTE | 2018-12-14 08:55 | DCSUMMARY ---
Hospitalization Summary Admit Date: 12/08/2018 Discharge Date: 12/14/18 Hospital Course: Discharge diagnoses 1. Right hip fracture status post right arthroplasty 2. History of diabetes 3. History of depression 4. History of hyperlipidemia 5. History of prosthetic right eye 6. History of cholecystectomy 7. History of appendectomy 8. Recent UTI Hospital course This is a 78 years old female with medical history significant for history of dementia, diabetes who fell at the custodial and was brought to the hospital where she was found to have a right hip fracture. She was admitted to the hospital by Dr. Campos please see his note. She was evaluated also by Dr. Lugo she had surgery and she had right arthroplasty. She was found also to have UTI and she was treated with antibiotics for that. Initially IV then switched to oral. There was a time post surgery where she was very sleepy so the pain medication were discontinued. I saw her later on during hospital stay she started to wake up. We stopped all the pain medication and kept her only on Tylenol. on The day of discharge she seemed to be alert was eating. We thought she could be go back to the custodial and continue physical therapy there. I think she had adequate treatment of antibiotics did not think that she needs more antibiotics post that. For her dementia we put her back on Namenda and Zoloft. I did DC the haloperidol. If needed they can put her on Seroquel at the custodial when she goes back. I did see notes from Dr. Goldman also talking about stopping the Haldol so we'll stop it. She need follow-up with Dr. Lugo in 2 weeks. The serjio can be removed on the December 24 per my discussion with him. I did put her on sliding scale insulin. Her intake is not much while she was here so if her intake improve then they can put her on her previous insulin regimen. She need to be on aspirin for DVT prophylaxis twice day for about 30 days. Then she can go back to once a day. Discharge instruction Diet pure Activity as tolerated weightbearing Medication please see the custodial discharge paper Follow-up with Dr. Lugo or Dr. Shukla in 2 weeks Condition at discharge was stable for discharge. Exam - Vitals Vital Signs: Vital Signs Temperature 97.4 F Temperature Source Temporal Artery Scan Pulse Rate [Pulse Oximeter] 80 Pulse Rate 95 Respiratory Rate 20 Blood Pressure [Right Arm] 130/50 Blood Pressure [Left Arm] 127/44 Blood Pressure 119/62 Pulse Ox 98 Oxygen Flow Rate 2 Oxygen Delivery Method Nasal Cannula Height 5 ft 2 in Weight 176 lb 3.2 oz - General General Appearance: No Acute Distress, Cooperative - Head Head Exam: Normal Inspection - Eye Eye Exam: POSITIVE: Normal Appearance - ENT ENT Exam: POSITIVE: Normal Exam - Neck Neck Exam: Normal Inspection - Respiratory Respiratory Exam: POSITIVE: Clear to Auscultation - Bilaterally - Cardiovascular Cardiovascular Exam: POSITIVE: RRR - GI/Abdominal GI/Abdominal Exam: POSITIVE: Normal Bowel Sounds, Non Tender, Non Distended, Soft - External Exam: POSITIVE: Deferred Exam: POSITIVE: Deferred - Extremities Extremities Exam: POSITIVE: Normal Inspection Additional Extremities Exam Details: Dressing applied to the right thigh - Back Back Exam: POSITIVE: Normal Inspection - Neurological Neurological Exam: POSITIVE: Alert, CN II-XII Intact, No Facial Droop, Speech Intact / Clear, Moves All Extremities Equally - Psychiatric Psychiatric Exam: POSITIVE: Normal Affect Patient Problems - Patient Problem List (1) Hip fracture Current Visit: Yes Status: Acute Code(s): S72.009A - Fracture of unspecified part of neck of unspecified femur, initial encounter for closed fracture Category: Medical (2) Diabetes Current Visit: Yes Status: Acute Code(s): E11.9 - Type 2 diabetes mellitus without complications Category: Medical (3) Dementia Current Visit: Yes Status: Acute Code(s): F03.90 - Unspecified dementia without behavioral disturbance Category: Medical (4) UTI (urinary tract infection) Current Visit: Yes Status: Acute Code(s): N39.0 - Urinary tract infection, site not specified Category: Medical
--- NOTE | 2018-12-14 08:56 | PT.PROG ---
Progress Note Progress Note: Treatment time: 0820 S: Pt sitting upright in recliner upon arrival, pt stated "I'm doing good this morning" and did not appear to be in any distress. O: Initiated ther-ex seated in recliner. BLE 10x2 each, LAQ, knee raises, isometric add w/ pillow, isometric abd w/ manual resistance, and ankle pumps. Pt left in recliner w/ side table and call button in reach, chair alarm activated. A: Pt tolerated session well w/ increased sets. She stated that knee raises and abduction felt more difficult w/ her RLE. Active assist provided for RLE knee raises. P: Continue with POC. Signed Jim Armenta, PT, DPT
[2018-12-14] MEDS ORDERED: ASPIRIN 81 MG (BABY) CHEWABLE TABLET ONE (09:08)
[2018-12-14] MEDS: POTASSIUM CLAVULANATE PO SCH (09:18)
[2018-12-14] MEDS: AMOX PO SCH (09:18)
[2018-12-14] MEDS: MEMANTINE 10 MG TABLET PO SCH (09:19)
[2018-12-14] MEDS: ASPIRIN 81 MG (BABY) CHEWABLE TABLET PO SCH (09:20)
[2018-12-14] MEDS: DOCUSATE 100 MG CAPSULE PO SCH (09:22)
[2018-12-14] MEDS: Insulin Lispro Flexpen 300 UNIT/3 ML INSULN.PEN SUBCUT SCH ×2 (09:22→12:46)
--- NOTE | 2018-12-14 10:20 | OT AM DAY ---
Diagnosis : Right Hip Fracture AM - Occupational Therapy S: Nursing states that the patient has been asking to get in the chair. O: OT did assist PT with getting the patient into the chair. Today the patient was able to demonstrate drinking thin liquid x6 sips without external signs of aspiration. We also implemented pureed foods with thin liquids and the patient did very well. A: The patient still requires assistance to feed self and short verbal cues in order to take a bite of food. The patient's daughters were present and one of them was asked to continue to give her mother a bite of food every once in a while and to give short verbal cues to take a bite as the patient has not been eating very much while in the hospital. The patient's daughters and the staff were educated to always keep the patient upright in a chair and to not feed her while supine or in an angled position. The patient has improved with some of her swallowing abilities. We did upgrade her to thin liquids but continue to stay on a pureed diet. She is still rolling mechanical soft food items in her mouth and does not tend to initiate a swallow with this. P: Continue seeing patient BID during the week and one time per day over the weekend until discharge. MTDD
--- NOTE | 2018-12-14 10:26 | OT.PROG ---
Progress Note Progress Note: S: pt was talkative this morning. Much more alert. She did state her leg is hurting. O: pt was seen in her room and was upright in chair. She completed x3 STS/standing activity with x2 man max A for 1 min ea. She needed max a with chair mobility for comfort. A: pt was much more alert today which made standing easier. She may continue to benefit from therapy to continue to increase her overall function/transfers. P: continue per POC.
[2018-12-14 11:33] VITALS: BP 120/51; RESP 18; O2SAT 91
[2018-12-14] MEDS: ACETAMINOPHEN 500 MG TABLET PO SCH (12:24)
--- NOTE | 2018-12-14 13:09 | ORTHO.PROG ---
Last Taken Vital Signs: Vital Signs - Last Taken Temperature 97.4 F 12/14/18 11:31 Pulse Rate 79 12/14/18 11:31 Respiratory Rate 18 12/14/18 11:31 Blood Pressure 120/51 12/14/18 11:31 Pulse Ox 91 12/14/18 11:31 Subjective: Patient doing well this morning does not complain of any hip pain is more talkative this morning. Objective: Patient able to answer simple questions denies any pain. Moves the leg well motor and sensory exam seems to be intact incision clean and dry dressing changed Silverlon dressing placed. No calf, popliteal adductor hiatus or thigh pain. Laboratory Results 12/14/18 12/14/18 04:30 04:30 WBC 9.54 RBC 3.27 L Hgb 10.3 L Hct 31.9 L MCV 97.6 MCH 31.5 H MCHC 32.3 L RDW Std Deviation 41.2 RDW Coeff of Darleen 11.9 Plt Count 265 MPV 9.8 Immature Gran % (Auto) 0.2 Neut % (Auto) 67.7 Lymph % (Auto) 17.4 [place] % (Auto) 11.3 Eos % (Auto) 3.2 Baso % (Auto) 0.2 Immature Gran # (Auto) 0.02 Neut # (Auto) 6.45 Lymph # (Auto) 1.66 [place] # (Auto) 1.08 H Eos # (Auto) 0.31 Baso # (Auto) 0.02 WBC Morphology Comment Normal morphology Plt Morphology Comment Normal morphology RBC Morph Comment Normal morphology Sodium 143 Potassium 3.6 L Chloride 105 Carbon Dioxide 30 Anion Gap 8 BUN 25 H Creatinine 0.9 Estimated GFR Paraffin Plant Operator BUN/Creatinine Ratio 27.77 H Glucose 167 H Calculated Osmolality 303.0 H Calcium 9.0 Vital Signs (24 hrs) 12/13/18 16:22 12/13/18 19:57 12/14/18 01:00 Temperature 98 F 97.7 F 97.2 F Pulse Rate [Pulse Oximeter] 67 81 72 Respiratory Rate 20 18 18 Blood Pressure [Left Arm] 127/44 Blood Pressure [Right Arm] 127/50 132/59 Pulse Ox 98 95 91 12/14/18 04:29 12/14/18 05:11 12/14/18 07:00 Temperature 97.5 F Pulse Rate [Pulse Oximeter] 69 80 Respiratory Rate 18 Blood Pressure [Left Arm] Blood Pressure [Right Arm] 134/52 Pulse Ox 96 98 12/14/18 07:44 12/14/18 11:31 Temperature 97.4 F 97.4 F Pulse Rate [Pulse Oximeter] 80 79 Respiratory Rate 20 18 Blood Pressure [Left Arm] 120/51 Blood Pressure [Right Arm] 130/50 Pulse Ox 98 91 Assessment: Right hemiarthroplasty for hip fracture Plan: Patient is going [facility] be [facility] where she can continue with physical therapy and occupational therapy. The dressing should be kept in place for at least another 5 days until we get out to about 10 days preferably if she can have the dressing on until serjio removed I would be ideal. She can have the serjio removed around the 2 week maria e and then Steri- Strip. Patient will follow up with my partner in 2-3 weeks for reevaluation. After that the patient will follow-up with myself in the office when I return approximately a month after. Continue with physical therapy DVT prophylaxis with aspirin in the morning and evening 81 mg and pneumatic sequential devices.
== END 2018-12-14 13:10 | DRG 470 ==
LOC: ER 19:35 → MED/SURG 21:17 → OPS 12-09 15:59 → MED/SURG 12-09 21:24
PROVIDERS: ADMIT Internal Medicine; ATTEND Internal Medicine